=== PATIENT | female | born 1990 | race Caucasian/White ===

== ENCOUNTER 2016-05-10 00:29 | Inpatient (IN) | payer OTHER ==
[~2016-05-10] VITALS: Ht 180.3 cm; Wt 110.2 kg
[2016-05-10] MEDS: Misoprostol 25 mCg/0.25 Tablet VAGINAL SCH ×2 (07:35→11:35)
[2016-05-10] MEDS ORDERED: Oxytocin 30 Units/500 mL LR 30 UNITS in IV Premix 1 EACH IV PRN ×3 (07:35→19:30)
[2016-05-10] MEDS ORDERED: diphenhydrAMINE 50 mg Capsule PO PRN (07:35)
[2016-05-10] MEDS ORDERED: Bupivacaine-MPF 0.25% 30 mL Inj ONE (09:11)
[2016-05-10] MEDS: Lactated Ringer's 1,000 ML IV SCH ×5 (09:25→19:27)
[2016-05-10] MEDS ORDERED: Lactated Ringer's 1,000 ML IV PRN (09:26)
[2016-05-10] MEDS ORDERED: Oxytocin 10 Unit/mL Inj IM PRN ×3 (09:30→19:30)
[2016-05-10] MEDS ORDERED: Sodium Chloride LOK Flush 10 mL Syringe IVFLUSH PRN (09:30)
[2016-05-10] MEDS ORDERED: Carboprost 250 mCg/mL Inj IM PRN ×3 (09:30→19:30)
[2016-05-10] MEDS ORDERED: Hemorrhage Kit, Post Partum XX ONE ×3 (09:30→19:30)
[2016-05-10] MEDS ORDERED: Methylergonovine 0.2 mg/mL Inj IM PRN ×3 (09:30→19:30)
[2016-05-10 09:36] LABS: Mean Corpuscular Hemoglobin 28.9 pg (27.0-35.0); Mean Corpuscular Volume 88.3 fL (81-100)
[2016-05-10] MEDS ORDERED: fentaNYL-PF 50 mCg/mL 2 mL Inj IVPUSH PRN (10:25)
[2016-05-10] MEDS ORDERED: Ondansetron 2 mg/mL 2 mL Inj IVPUSH PRN ×2 (10:25→10:55)
[2016-05-10] MEDS ORDERED: Lactated Ringer's 500 ML IV ONE (10:54)
[2016-05-10] MEDS ORDERED: Atropine 1 mg/10 mL (Code) Syringe IVPUSH PRN (10:55)
[2016-05-10] MEDS ORDERED: fentaNYL 2 mCg/mL-Bupiv 0.125% 100 ML EPIDURAL SCH (10:55)
[2016-05-10] MEDS ORDERED: EPHEDrine Sulfate 50 mg/mL Inj IVPUSH PRN (10:55)
--- NOTE | 2016-05-10 11:46 | HP ---
[address] [address] HISTORY AND PHYSICAL PATIENT: SANTANA SYED : 1990 MR#: [id number] ADMIT: 05/10/2016 JOB ID: [id number] CHIEF COMPLAINT: Elective induction at 41 weeks. HISTORY AND PHYSICAL: This is my obstetrical patient, who is a 25-year-old woman, who is a primiparous at 41 weeks estimated gestational age today, with an EDC of May 03 based on a 12 week ultrasound on October 20. The patient has no acute complaints at all, but does note that she has been starting to contract regularly over the last 24 hours, now rojas about every 10 minutes, and passed her mucus plug yesterday. She does feel the baby moving daily, and has no other acute complaints. Specifically denies any swelling in her feet, any headaches or blurry vision, or any unusual abdominal pain besides the contractions. No chest pain, palpitations, or shortness of breath. No recent illness. Plans are to admit her for elective induction. I discussed this case with Dr. Barnhart, my supervising obstetrical attending, this morning. PAST MEDICAL HISTORY: Remarkable for some depression in the past, although has not been on medications for a number of years. Otherwise, medical history is entirely unremarkable. SURGICAL HISTORY: Also negative. FAMILY HISTORY: Significant for hypertension in both her mother and her father, but otherwise is unremarkable/noncontributory. SOCIAL HISTORY: The patient lives in [place] with her significant other of the last four years, and has no children. The patient is a part-time worker at [employer]. She is a nonsmoker, having never smoked, does not drink any alcohol, and denies drug use. The patient has no known drug allergies. CURRENT MEDICATIONS: Are vitamins. Otherwise, is on no regular medications. HISTORY: Entirely unremarkable, except for transfer of care to id at 32 weeks. LABORATORIES: Showed that her blood type is O-positive. Rubella immune. Serology is nonreactive. She is negative to hepatitis B, hep C, HIV, and antibody screen. Hematocrit is 35.4 at 34 weeks. The patient never had a Pap smear for the course of , this was declined. MSAFP test was done at about 18 weeks, and was negative. GBS test was done at 36 weeks, and that was negative as well. Chlamydia and gonorrhea tests were obtained at 34 weeks, and this was negative. She declined diabetic screening. She gained about 48 50 pounds through the course of her . Her blood pressure remained nice and within the normal range throughout the . Obstetrical risk factors of the transfer of care at 32 weeks and really a spotty care up until then, with some degree of noncompliance. Also, another problem is excessive weight gain. Incidentally, she had a flu vaccination on March 09, and her tetanus vaccination is up-to-date. REVIEW OF SYSTEMS: See HPI above. The patient has no acute complaints. OBJECTIVE: Well-developed, well-nourished woman, in no apparent distress. Her vital signs are normal. Lungs are clear to auscultation bilaterally, with good air movement. Heart is regular rate and rhythm. No significant murmurs heard. Abdomen is gravid, otherwise benign. She has normoactive bowel sounds. Extremities show normal deep tendon reflexes, and no significant edema. Cervical exam is pending this morning, as well as the heart tracing. ASSESSMENT AND PLAN: Intrauterine at 41 weeks, here for elective induction. Depending on her cervical exam this morning, we will proceed with either Cytotec if her cervical exam is unfavorable, whereas if it is favorable, we will observe and potentially start Pitocin for induction if needed. Otherwise, routine expectant management procedures will be employed. I discussed this case with Dr. Barnhart this morning, as my obstetrical tour consultant, and she agrees with the plan of care. I discussed routine expectant management issues and procedures. Also discussed potential complications in the usual obstetrical procedures to address them, but also the possible need for surgical care if a becomes needed. I also discussed the possible need for assistance with vacuum extraction and the associated potential complications. All of her questions were answered and she expressed understanding of these issues and is willing to proceed.
--- NOTE | 2016-05-10 11:51 | PCM.HPANE ---
Patient Data Surgeon Admitting Provider:Glenn Ruiz MD Attending Provider:Glenn Ruiz MD Primary Care Physician:Andrew Nguyễn MD Other Provider:Lindsay Cardozo Anesthesia Reason for Visit Induction INDUCTION Ht/WT & BMI Body Mass Index Allergies Coded Allergies: No Known Allergies (Unverified , 05/10/16) MRSA MRSA: No Medications Hypertension Medication: No Home Meds Incl Beta Radha: No History History of ENT Problems?: No Hx of Heart Problems?: No Hx of Respiratory Problem?: No Hx Neurologic Problems?: No Hx of GI Problems?: No Hx of Problems?: No Female Hx: Positive for:: Currently Hx Musculoskeletal Problems?: No Psycho Social History: Positive for:: Hx Depression Hx Surgeries?: No Hx Alcohol Use: NoHx Substance Use: No Smoking Status: Never Smoker Have You Smoked inLast 12 mo: No Stop/Bang ARLEY Risk Assessment: Low Risk, <3 Yes Risk Assessment Category Category 1A: Patient has history of documented sleep apnea, and HAS NOT received any narcotic, sedative or anesthesia administration during this stay. Category 1B: Patient has history of documented sleep apnea, and HAS received any narcotic , sedative or anesthesia administration during this stay Category 2: Patient has SUSPECTED Obstructive Sleep Apnea, and HAS received any narcotic , sedative or anesthesia administration during this stay. Category 3: Patient has SUSPECTED Obstructive Sleep Apnea and HAS NOT received narcotic, sedative or anesthesia administration during this stay. Category 4: Outpatient in Procedural Areas with known sleep apnea or who screen positive for High Risk via the STOP/BANG questionnaire. Exam Exam General Appearance: Alert, Oriented X3, Cooperative, No Acute Distress HEENT/AIRWAY: MP 2 Lungs: Clear to Auscultation, Normal Air Movement Heart: Exam Unremarkable, Regular Rate/Rhythm, No Murmurs/Rubs/Gallops Meds/Labs/Diagnostics Admission Meds Current Medications Lactated Ringer's (Lr) 1,000 ml @ 125 mls/hr Q8H IV Last administered on t 10:24; Start 05/10/16 at 07:31 Labs Test 05/10/16 08:58 White Blood Count 13.3th/mm3 (3.8-10.1) Red Blood Count 4.63mil/mm3 (3.90-5.20) Hemoglobin 13.4g/dL (12.0-15.6) Hematocrit 40.9% (35.0-46.0) Mean Corpuscular Volume 88.3fL (81-100) Mean Corpuscular Hemoglobin 28.9pg (27.0-35.0) Mean Corpuscular Hemoglobin Concent 32.8% (32.0-37.0) Red Cell Distribution Width 13.8% (12.3-15.4) Platelet Count 194bil/L (150-400) Plan Impression Patient chart reviewed, patient interviewed and anesthestic plan with risks, benefits, and alternatives discussed, and informed consent obtained. ASA Physical Status: ASA2 Mod Systemic Disease Anesthetic Plan: Epidural Bene/Risks/Altern/Consents: Yes HP Complete Prior to Induction: Yes Adrian Sanders MD May 10, 2016 10:55
[2016-05-10] MEDS ORDERED: Mineral Oil-Heavy 30 mL UDC ONE (17:29)
[2016-05-10] MEDS ORDERED: oxyCODONE-Acetamin 5-325 mg Tablet PO PRN (19:30)
[2016-05-10] MEDS ORDERED: Benzocaine (Dermoplast) 20% 60 Gm Spray TOPICAL PRN (19:30)
[2016-05-10] MEDS ORDERED: LANOlin HPA 7 Gm Ointment TOPICAL PRN (19:30)
--- NOTE | 2016-05-10 20:01 | OP ---
[address] [address] OPERATIVE REPORT PATIENT: SANTANA SYED : 1990 MR#: [id number] ADMIT: 05/10/2016 JOB ID: [id number] DATE OF SURGERY: 05/10/2016 SURGEON: Glenn Ruiz MD PREOPERATIVE DIAGNOSIS(ES): POSTOPERATIVE DIAGNOSIS(ES): DELIVERY NOTE: The patient had a spontaneous vaginal delivery. As described below. Please see my admission history and physical for her admitting circumstances. The patient did very well through the day. She was found to be 1 cm and 30% effaced, -3 station, vertex position, with a Diaz score of only 3, when she presented at that time. By the time they got the IV fluids going and labs done, they rechecked her and she was 3-4 cm and 90% effaced, at -2 station, and she was rojas fairly regularly every 3-4 minutes at that point, so induction was canceled and we just let her labor naturally. She proceeded to dilate slowly and was requesting an epidural, and this was placed at about noon. She continued to dilate nicely through the afternoon and at about 2:00 was found to be 8 cm and artificial rupture of membranes was performed then. She had a bulging bag. Meconium-stained amniotic fluid was noted. heart tracing remained reactive through this time period, although there were times when there was minimal reactivity, but there were never any concerning waveforms and she continued to have nice periods of reactive reassuring heart tracing. She was finally noted to be completely dilated and effaced at 5:04 this afternoon. She labored down for a little while and then started pushing after approximately 30 minutes at zero station and eventually delivered the baby's head. There was no nuchal cord noted, and then the rest of the baby was delivered at 1835. The baby was crying loudly and placed on mom's tummy. Approximately 60 seconds was waited and the cord was clamped and cut. Pediatrics was in room and examined the baby and determined the baby was doing well. The placenta delivered spontaneously and intact at 1841; 3 vessel cord was visualized. Examination of her perineum revealed a second-degree laceration that extended towards the anus but did not involve the internal sphincter. This was repaired with 3-0 Vicryl in the usual manner without difficulty. The cervix was visualized and it was not obviously bleeding. Estimated blood loss 350 cc. Complications none. This was a baby girl with Apgars of 9 and 9. Weight is 9 pounds and 9 ounces. The patient will be placed on routine obstetrical care. LUCINA
[2016-05-10] MEDS: Witch Hazel-Glycerin Pads TOPICAL PRN (21:01)
--- NOTE | 2016-05-10 21:38 | PCM.ANEP2 ---
Post Anesthesia Evaluation ASA/CMS Post Anesthesia VS in Patient's Normal Range?: Yes Resp Stable; Airway Patent?: Yes CV Function & Hydration Stable: Yes Mental Status Recovered?: Yes Pain control Satisfactory?: Yes N/V Control Satisfactory?: Yes Adrian Sanders MD May 10, 2016 21:38
[2016-05-11] MEDS: Lactated Ringer's 1,000 ML IV SCH ×3 (02:54→11:27)
[2016-05-11 06:58] LABS: Mean Corpuscular Hemoglobin 29.6 pg (27.0-35.0); Mean Corpuscular Volume 89.1 fL (81-100)
[2016-05-11] MEDS: Ascorbic Acid 500 mg Tablet PO SCH ×2 (08:12→20:30)
--- NOTE | 2016-05-11 21:26 | PROG NOTE ---
[address] [address] PROGRESS NOTE PATIENT: SANTANA SYED : 1990 MR#: [id number] ADMIT: 05/10/2016 JOB ID: [id number] DATE: 05/11/2016 SUBJECTIVE: The patient has no acute complaints. She reports her breasts are doing fine and not too tender. Her bleeding is calming down and her perineum is certainly tender but seems tolerable at this time. She has no new complaints. OBJECTIVE: Well-developed, obese woman in no apparent distress. Her vital signs are normal. Lungs are clear to auscultation bilaterally with good air movement. Heart is regular rate and rhythm. No significant murmurs heard. Abdomen is soft. No significant tenderness is noted, and she has normoactive bowel sounds. Extremities show no pitting edema and normal deep tendon reflexes. ASSESSMENT: Status post spontaneous vaginal delivery yesterday evening about 13 hours ago. Doing well and recovering nicely. She did have a pretty substantial perineal laceration that was repaired and is also having some difficulty breast feeding. Will continue to monitor closely overnight and anticipate being able to discharge her in the morning.
--- NOTE | 2016-05-12 07:31 | PCM.DC.OB ---
Obstetrical Discharge Summary Date of Service May 12, 2016 Date of hospital admission May 10, 2016 at 07:19 Date of Discharge: May 12, 2016 Providers Admitting Physician: Glenn Ruiz MD Primary Care Physician: Andrew Nguyễn MD Attending Physician: Glenn Ruiz MD Problems: (1) Normal spontaneous vaginal delivery Status: Resolved ICD Code: O80 Invasive procedures Spontaneous Vaginal Delivery Date of Procedure: May 10, 2016 Hospital Course: See notes Follow-up plan f/u in 6 weeks and as needed. Discharge Diet: No restrictions Discharge Activity-General: Pelvic Rest for 6 weeks, Try not to overdue, Be up and about, Balance rest and activity Time spent 15 minutes Glenn Ruiz MD May 12, 2016 07:31
--- NOTE | 2016-05-12 07:33 | PCM.DIOB ---
Obstetrical Disch Instruction Date of Service: May 12, 2016 Dates of Hospitalization Date of Hospital Admission May 10, 2016 at 07:19 Providers Admitting Physician: Glenn Ruiz MD Primary Care Physician: Andrew Nguyễn MD Attending Physician: Glenn Ruiz MD Discharge Diagnosis Problems: (1) Normal spontaneous vaginal delivery Status: Resolved ICD Code: O80 Diet Discharge Diet: No restrictions Activity Discharge Activity-General: Pelvic Rest for 6 weeks, Try not to overdue, Be up and about, Balance rest and activity Dressing and Incisional Care Hygiene: May shower, Wash incision with soap & water, DO NOT soak incision under water, Perineal care, Sitz bath, Dermoplast spray, Witch Susanne pads, Ice Follow Up Plan Follow Up Plan f/u in 6 weeks and as needed. Follow-up Provider (F9): Glenn Ruiz MD Follow-up appointment: Weeks (six) Call your provider for: Fever or Chills, Shortness of breath, Heavy vaginal bleeding, Heavy bleeding, Epigastric pain, Excessive constipation, Vaginal discomfort, Red painful breasts Additional Information 15 minutes lGenn Ruiz MD May 12, 2016 07:33
[2016-05-12] MEDS ORDERED: OXYC1TAB24 PO (07:35)
[2016-05-12] MEDS ORDERED: DOCU-41 PO (07:35)
--- NOTE | 2016-05-12 08:41 | DIS ---
[address] [address] DISCHARGE SUMMARY PATIENT: SANTANA SYED : 1990 MR#: [id number] ADMIT: 05/10/2016 JOB ID: [id number] DIS: 05/11/2016 DATE OF ADMISSION: 05/10/2016 DATE OF DISCHARGE: 05/12/2016 DISCHARGE DIAGNOSES: 1. Term that has resolved. 2. Spontaneous vaginal delivery on May 10. HISTORY AND PHYSICAL: Please see my admission H and P for details. PROCEDURES: Patient had a spontaneous vaginal delivery on May 10, 2016 without significant problems. See my delivery note for details. HOSPITAL COURSE: The patient presented for induction early on the morning of May 10 for elective induction secondary to being 41 weeks. She actually went into labor naturally and never needed to be induced after all and then proceeded nicely and reasonably quickly through the day and eventually had a vaginal without significant problems at about 1800 on May 10. She did have a second degree perineal laceration and had some difficulty with breast-feeding and so she and the baby were kept through the day and overnight on May 11, and on the morning of May 12 seemed to be doing better in general with decreased perineal discomfort, decreasing lochia and improving breast-feeding, although still having some difficulty. The patient had no acute complaints upon discharge. OBJECTIVE: Well-developed, well-nourished woman in no apparent distress. Her vital signs are normal. Lungs are clear to auscultation bilaterally with good air movement. Heart is regular rate and rhythm. No significant murmurs heard. Abdomen is soft, nontender with normoactive bowel sounds. Uterus is firm and below the umbilicus. Extremities showed normal deep tendon reflexes and no significant edema. ASSESSMENT: Status post spontaneous vaginal delivery at term, doing well. PLAN: We will plan on discharge today with instructions to follow up in six weeks, otherwise as needed. DISCHARGE MEDICATIONS: Include: 1. Ibuprofen as needed, that she can get over the counter. 2. Percocet 5/325, given 20 tablets and told to use 1-2 p.o. q.i.d. p.r.n. for breakthrough pain. 3. Docusate sodium 100 mg, given 60 tablets and told to use 1 tablet twice a day as needed for difficult stools.
[2016-05-12 09:29] VITALS: BP 119/71; PULSE 89; RESP 18
[2016-05-12] MEDS: Ascorbic Acid 500 mg Tablet PO SCH (10:11)
[2016-05-12] MEDS: Witch Hazel-Glycerin Pads TOPICAL PRN (10:39)
== END 2016-05-12 12:08 | disposition home or self-care (01) | DRG 775 ==
LOC: FBC 07:19
PROVIDERS: ADMIT Family Medicine; ATTEND Family Medicine
PROC: 10E0XZZ Delivery of Products of Conception, External Approach (ICD-10-PCS; principal; 2016-05-10)
PROC: 0KQM0ZZ Repair Perineum Muscle, Open Approach (ICD-10-PCS; 2016-05-10)
PROC: 10907ZC Drainage of Amniotic Fluid, Therapeutic from Products of Conception, Via Natural or Artificial Opening (ICD-10-PCS; 2016-05-10)
DX: O70.1 Second degree perineal laceration during delivery (principal); Z37.0 Single live birth; Z3A.41 41 weeks gestation of pregnancy